=== PATIENT | female | born 1980 | race Hispanic/Latino ===

== ENCOUNTER 2018-06-01 06:49 | Day surgery (SDC) | payer OTHER ==
[~2018-06-01 06:49] MED LIST: ANCEF/STERILE WATER 2 GM/20 ML 2 GM/20 ML SYRINGE IV NR; NACL 0.9% 1000 ML 1,000 ML IV SCH
[2018-06-01 07:52] LABS: Basophils % (Auto) 0.7 % (0.0-1.8); Eosinophils # (Auto) 0.1 K/mm3 (0.0-0.4); Eosinophils % (Auto) 1.2 % (0.0-4.3); Hematocrit 40.8 % (30.3-42.9); Lymphocytes # (Auto) 1.8 K/mm3 (1.2-5.4); Lymphocytes % (Auto) 28.9 % (13.4-35.0); Mean Corpuscular HGB Conc 34 % (30-34); Mean Corpuscular Hemoglobin 32 pg (28-32); Mean Corpuscular Volume 93 fl (79-97); Monocytes # (Auto) 0.5 K/mm3 (0.0-0.8); Monocytes % (Auto) 7.1 % (0.0-7.3); Platelet Count 254 K/mm3 (140-440); Red Blood Count 4.37 M/mm3 (3.65-5.03); Red Cell Distribution Width 13.6 % (13.2-15.2)
[2018-06-01 08:05] LABS: INR 0.93 (0.87-1.13)
[2018-06-01 08:06] LABS: BUN/Creatinine Ratio 10; Blood Urea Nitrogen 9 mg/dL (7-17); Hemolysis Index 2; Partial Thromboplastin Time 24.5 Sec. (24.2-36.6)
[2018-06-01] MEDS ORDERED: HEPARIN/NS 5000 UNIT/500ML(CATH LAB) 500 ML IR ONE ×2 (11:07→12:06)
[2018-06-01] MEDS: SUBLIMAZE ONE ×3 (11:42→12:12)
[2018-06-01] MEDS: VERSED ONE ×2 (11:42→12:01)
[2018-06-01] MEDS: XYLOCAINE 2% INFILTRATI ONE ×2 (11:45→11:47)
[2018-06-01] MEDS ORDERED: TORADOL ONE (12:09)
[2018-06-01] MEDS ORDERED: DILAUDID ONE (12:17)
[2018-06-01] MEDS ORDERED: NORCO 5/325 PO ONE ×2 (13:20→14:47)
--- NOTE | 2018-06-01 13:51 | Short Stay Summary ---
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 Past Medical History: other (venous insufficiency) Social history: no significant social history - Allergies and Medications Current Medications: Allergies No Known Allergies Allergy (Unverified 06/01/18 06:50) Home Medications Medication Instructions Recorded Confirmed Last Taken Type Ondansetron [Zofran Odt] 4 mg PO Q6H PRN #30 tab.rapdis 06/01/18 Unknown Rx RX: Bupropion HCl [Wellbutrin Xl] 300 mg PO DAILY 06/01/18 06/01/18 05/31/18 History 300mg oxyCODONE /ACETAMINOPHEN [Percocet 1 tab PO Q4HR #40 tab 06/01/18 Unknown Rx 5/325] Active Medications Cefazolin Sodium (Ancef/Sterile Water 2 Gm/20 Ml) 2 gm in 20 mls @ 80 mls/hr IV PREOP NR; Protocol Stop: 06/01/18 23:59 Sodium Chloride (Nacl 0.9% 1000 Ml) 1,000 mls @ 42 mls/hr IV DIRECT MATHEW Last Admin: 06/01/18 08:00 Dose: 42 mls/hr - Physical exam General appearance: no acute distress Lungs: Normal air movement Breasts: deferred Heart: Regular rate Gastrointestinal: normal Female Genitourinary: deferred Rectal Exam: deferred Extremities: no ischemia, no No edema - Brief post op/procedure progress note Date of procedure: 06/01/18 Pre-op diagnosis: venous hypertension secondary to compression Post-op diagnosis: same Procedure: BLE venogram with stent placement Anesthesia: local Surgeon: VAN BRAN Estimated blood loss: minimal Pathology: none Condition: stable - Disposition Condition at discharge: Good Disposition: DC-[id number] TO HOME OR SELFCARE Short Stay Discharge Plan Activity: advance as tolerated Weight Bearing Status: Weight Bear as Tolerated Diet: regular Wound: keep clean and dry, per your surgeon's advice Follow up with: MONICA JACOSBON MD [Primary Care Provider] - 7 Days Prescriptions: Ondansetron [Zofran Odt] 4 mg PO Q6H PRN #30 tab.rapdis PRN Reason: Nausea oxyCODONE /ACETAMINOPHEN [Percocet 5/325] 1 tab PO Q4HR #40 tab
--- NOTE | 2018-06-01 14:00 | Operative Report ---
Operative Report Operative Report: Exam: Bilateral lower extremity venogram, intravascular ultrasound, thermal dorsiflexion of left gonadal vein, venoplasty and stent placement Clinical indication: Patient with a history of venous hypertension secondary to extrinsic compression of her veins. Date: 06/01/2018 Procedure: Following an explanation of the risks, benefits and alternatives; written informed consent was obtained. The patient was brought to the angiographic suite and placed in supine position on the examination table. Initial ultrasound evaluation of her right leg demonstrated a patent femoral vein. Initial ultrasound evaluation of her left leg demonstrated a patent femoral vein. The patient's bilateral proximal legs were prepped and draped in the usual sterile fashion. 1% lidocaine was used for anesthesia. Under ultrasound guidance, the right femoral vein proximally was cannulated with a 7 cm 18-gauge needle. A 0.035 guidewire was advanced centrally. The needle was removed and a 5 [place] sheath placed. Access to the left proximal femoral vein was obtained in a similar fashion and a second 5 [place] sheath placed. Venogram performed to the sheaths demonstrated significant extrinsic compression of the left common iliac vein, left external iliac vein and right common iliac vein. There is prompt appearance of pelvic collaterals and reflux into the internal iliac veins bilaterally. The 5 [place] sheaths were upsized over the guidewire for 10 [place] sheaths. Intravascular ultrasound was then performed through the right sheath beginning in the IVC. Imaged vessels include the IVC, right common iliac vein, right external iliac vein and right common femoral vein. The right common iliac vein demonstrates 60% stenosis with prestenotic dilatation. Intravascular ultrasound was then performed through the left sheath from the IVC to the sheath insertion site. Imaged vessels include the IVC, left common iliac vein, left external iliac vein and left common femoral vein. The left common iliac vein demonstrates 80-90% stenosis. The left external iliac vein demonstrates a separate 60% stenotic lesion. Prestenotic dilatation is present proximal to both of these lesions. And 18 x 90 mm wall stent was then advanced through the left sheath and a 16 x 90 mm Wallstent advanced through the right sheath. The stents were deployed in the external iliac veins bilaterally extending into the common iliac veins. A second 18 x 90 mm Wallstent was advanced through the left sheath through the previously placed sheath and deployed across the common iliac vein lesion. A second 16 x 90 mm Wallstent was advanced through the right sheath and deployed across the right common iliac vein lesion. The stents were seated throughout the course using 16 mm balloons insufflated to the abdominal atmospheres. Post stent appointment imaging demonstrated brisk flow throughout the deep pelvic system with nonvisualization of pelvic collaterals. A 5 [place] seeking cobra catheter was then advanced over the guidewire through the right sheath. The Catheter was advanced to the level of the left renal vein. Selective cannulation of the left renal vein was performed using the guidewire and the catheter advanced into the left renal vein. Angiography was performed in the main left renal vein. This demonstrates prompt opacification of the left renal vein adjacent to the hilum with prompt reflux of contrast into the left adrenal vein which is dilated measuring 4 mm in diameter and prompt reflux of contrast into the left gonadal vein which is dilated measuring 7 mm in diameter. There is nonvisualization of the left renal vein draining into the IVC. The catheter and guidewire were then used to selectively cannulate the left gonadal vein and advanced to the level of the pelvis under fluoroscopy. The guidewire was removed and additional angiography performed which demonstrated numerous pelvic varicosities with near complete stasis of contrast within the left gonadal vein. At this point, the catheters, guidewires and sheaths were removed and hemostasis achieved using a new compression. Sterile compression dressings were then applied. The patient tolerated the procedure well. There were no immediate post procedure complications. Conscious sedation was performed under the guidance of radiologic nursing. Continuous cardiopulmonary monitoring was utilized. Impression: 1) Bilateral lower extremity venogram demonstrating 60% stenosis involving the right common iliac vein, 80-90% stenosis involving the left common iliac vein with a second separate lesion involving the left external iliac vein measuring 60%. 2) Treatment of these lesions with stents as described. 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 The patient will need further evaluation with a CT scan of the abdomen in arterial and venous stasis. 4) Evaluation of the left gonadal vein demonstrating dilation of the left gonadal vein with numerous pelvic varicosities.
[2018-06-01 15:08] VITALS: BP 123/77
[2018-06-01] MEDS ORDERED: ZOFRAN IV ONE (15:52)
== END 2018-06-01 16:00 | disposition home or self-care (01) ==
LOC: CATHLABREC 06:49
PROVIDERS: ATTEND Radiology Diagnostic Radiology
DX: I87.1 Compression of vein (principal); I87.323 Chronic venous hypertension (idiopathic) with inflammation of bilateral lower extremity; K21.9 Gastro-esophageal reflux disease without esophagitis; F32.9 Major depressive disorder, single episode, unspecified; F41.9 Anxiety disorder, unspecified; Z79.899 Other long term (current) drug therapy; Z72.89 Other problems related to lifestyle; Z79.01 Long term (current) use of anticoagulants; Z98.890 Other specified postprocedural states; Z80.0 Family history of malignant neoplasm of digestive organs
CPT/HCPCS: 36012; 36415; 37238; 37239; 37252; 37253; 75822; 75831; 76937; 80048; 81025; 85025; 85610; 85730; 96374; 99156; 99157; C1725; C1753; C1769; C1876; C1894; J1170; J1644; J1885; J2250; J2405; J3010; J7030; 36011; 75774; Q9967